=== PATIENT | male | born 2000 | race African-American/Black ===

== ENCOUNTER 2020-10-08 18:41 | Emergency (ER) | payer OTHER ==
[~2020-10-08] VITALS: Ht 182.9 cm; Wt 80.7 kg
[2020-10-08 18:42] VITALS: BP 144/76
[2020-10-08] MEDS ORDERED: NORCO 5/325MG TABLET (BULK FOR ED) PO ONE (19:50)
== END 2020-10-08 20:00 | disposition home or self-care (01) ==
LOC: M ED 18:41
DX: S06.0X0A Concussion without loss of consciousness, initial encounter (principal); S01.511A Laceration without foreign body of lip, initial encounter; S03.2XXA Dislocation of tooth, initial encounter; W01.198A Fall on same level from slipping, tripping and stumbling with subsequent striking against other object, initial encounter; Y92.018 Other place in single-family (private) house as the place of occurrence of the external cause